=== PATIENT | female | born 1970 | race Caucasian/White ===

== ENCOUNTER 2017-01-03 13:10 | Inpatient (IN) | payer MEDICAID ==
--- NOTE | 2017-01-03 15:00 | C.PDOC ---
History Of Present Illness Sabrina is a 46 y/o female who was brought to the ED via EMS for evaluation of lower back and right buttock pain radiating down the right lateral thigh worstening for 10 days since picking up her daughter (2 y/o). h/o of same 4 yrs ago, and was bedridden due to bulging disk pain and hospitalized. No direct trauma. no leg weakness/parasthesias. No NSAIDS/ice/heat trialed @ home. PMD: Unknown Time Seen by Provider: 01/03/17 13:39 Chief Complaint (Nursing): Back Pain History Per: Patient History/Exam Limitations: no limitations Onset/Duration Of Symptoms: Days (x 10) Current Symptoms Are (Timing): Still Present Past Medical History Reviewed: Historical Data, Nursing Documentation, Vital Signs Vital Signs: Last Vital Signs Temp 98.3 F 01/03/17 18:33 Pulse 70 01/03/17 18:33 Resp 20 01/03/17 18:33 BP 105/71 01/03/17 18:33 Pulse Ox 99 01/03/17 18:33 - Medical History PMH: No Chronic Diseases Other Surgeries: Surgery for herniated lumbar disc Family History: States: Unknown Family Hx - Social History Hx Alcohol Use: No Hx Substance Use: No - Immunization History Hx Tetanus Toxoid Vaccination: No Hx Influenza Vaccination: No Hx Pneumococcal Vaccination: No Review Of Systems Except As Marked, All Systems Reviewed And Found Negative. Musculoskeletal: Positive for: Back Pain (right buttock pain radiating down the right lateral thigh) Physical Exam - Physical Exam Appears: Well, Non-toxic, No Acute Distress Skin: Normal Color, Warm, Dry, No Rash Head: Atraumatic, Normacephalic Eye(s): bilateral: Normal Inspection, PERRL, EOMI Oral Mucosa: Moist Neck: Normal ROM, Supple Chest: Symmetrical Cardiovascular: Rhythm Regular, No Murmur Respiratory: Normal Breath Sounds, No Accessory Muscle Use Gastrointestinal/Abdominal: Normal Exam, Soft, No Tenderness Back: Normal Inspection Extremity: Normal ROM, Capillary Refill (< 2 sec), No Deformity Neurological/Psych: Oriented x3, Normal Speech, Normal Motor Gait: Steady ED Course And Treatment - Laboratory Results Result Diagrams: 01/03/17 17:21 01/03/17 17:21 O2 Sat by Pulse Oximetry: 100 (RA) Pulse Ox Interpretation: Normal Progress Note: 14:00. Initial Plan: Patient given Toradol 60 mg IM, and Ultram 50 mg, ice pack to R buttock (supposing sciatica) PO. Pending reevaluation and disposition. 1600: percocet PO. 1700: pain not significantly improved, cannot sit up nor dangle legs @ bedside. CT results of LS spine reviewed- Agrees with Obs - Physician Consult Information Outcome Of Conversation: 1914: d/w Dr. Carvajal, Hospitalist for this Self pay pt - ok Obs. Medical Decision Making Medical Decision Making: intractable R sciatica pain from R>L L5/S1 disk bulge (similar to prior 4 yrs ago) unrelenting even after ice, toradol, tramadol, percocet. Solumdrol empirically and bedrest consider neuro/NSGY consults. Progress Notes: Patient will be admitted to the hospital. EKG: Ordered, reviewed, and independently interpreted the EKG. Rate: 71 BPM Rhythm: NSR Interpretation: No ST-segment elevations or depressions, no T-wave inversions, normal intervals. Comparison: No previous EKG for comparison. Disposition Doctor Will See Patient In The: Hospital Counseled Patient/Family Regarding: Studies Performed, Diagnosis - Disposition Disposition: HOSPITALIZED Disposition Time: 17:17 Condition: GOOD - Clinical Impression Clinical Impression: Bulging of lumbar intervertebral disc, Sciatica, Intractable low back pain - Scribe Statement The provider has reviewed the documentation as recorded by the Scribagustín Elliott All medical record entries made by the Scribe were at my direction and personally dictated by me. I have reviewed the chart and agree that the record accurately reflects my personal performance of the history, physical exam, medical decision making, and the department course for this patient. I have also personally directed, reviewed, and agree with the discharge instructions and disposition.
[2017-01-03] MEDS ORDERED: Oxycodone/Acetaminophen 5/325 mg Tab PO STA (15:06)
[2017-01-03] MEDS ORDERED: Oxycodone/Acetaminophen 5/325 mg Tab ONE (15:17)
--- NOTE | 2017-01-03 16:48 | CT ---
PROCEDURE: CT lumbar spine dated 01/03/2017 HISTORY: Right-sided sciatica. COMPARISON: No prior TECHNIQUE: Axial computed tomography images were obtained of the lumbar spine without the use of intravenous contrast. Coronal and sagittal reformatted images were created and reviewed. Radiation dose: Total exam DLP = 430.7 mGy-cm. This CT exam was performed using one or more of the following dose reduction techniques: Automated exposure control, adjustment of the mA and/or kV according to patient size, and/or use of iterative reconstruction technique. FINDINGS: VERTEBRAE: Current study reveals no evidence of acute compression fractures nor retropulsed fragments. Minor chronic appearing anterior stature loss of the T12 segment felt to be degenerative in origin. The remaining vertebral bodies otherwise exhibit normal stature. Straightening of the normal lumbar lordosis however vertebral bodies otherwise exhibit normal alignment. Facets normally aligned. DISCS/SPINAL CANAL/NEURAL FORAMINA: At the L5-S1 level, there appears to be a small central and right parasagittal disc herniation compresses the ventral surface of the thecal sac centrally and to the right more so than left. Disc space heights relatively maintained Facets is thus level slightly overgrown. Proximal exit foramina appear adequate. The remaining levels exhibit relatively adequate disc space height. Minimal broad-based bulge of the posterior annulus seen at the L4-L5 level which results in some flattening of the ventral surface of thecal sac. Facets are mildly overgrown. Central canal appears adequate. Exit foramina are also adequate. No disc herniations nor significant disc bulges seen at the remaining levels. Facets a prominent the L3-L4 level. The overall central canal and exit foramina appear adequate at the remaining levels. PARASPINAL SOFT TISSUES: Paraspinal soft tissues appear grossly unremarkable. OTHER FINDINGS: Incidental note made of in situ IUD. . Moderate amount of stool seen within the right colon suggesting fecal retention/constipation IMPRESSION: No acute fractures. Moderate-sized disc herniation L5-S1 level larger on the right than left with compressive effects on the ventral surface of the thecal sac again more so on the right side. . Minor broad-based bulge of the posterior annulus L4-L5 level with some minor flattening the ventral surface of thecal sac however no significant canal compromise. In situ IUD.
[2017-01-03 17:26] LABS: BASO % 0.7 % (0.0-2.0); EOS % 0.1 % (0.0-4.0); HEMATOCRIT 36.2 % (34.0-47.0); LYMPH # 1.1 K/uL (1.0-4.3); LYMPH % 22.8 % (20.0-40.0); MEAN CELL VOLUME 80.9 fL (81.0-99.0); MEAN CORPUSCULAR HEMOGLOBIN 26.8 pg (27.0-31.0); MEAN CORPUSCULAR HGB CONC 33.1 g/dL (33.0-37.0); MEAN PLATELET VOLUME 7.9 fL (7.2-11.7); MONO # 0.3 K/uL (0.0-0.8); MONO % 6.8 % (0.0-10.0); RED CELL DISTRIBUTION WIDTH 15.4 % (11.5-14.5)
[2017-01-03 17:35] LABS: CHLORIDE 105 mmol/L (98-107); POTASSIUM 3.9 mmol/L (3.6-5.2); SODIUM 141 mmol/L (132-148)
[2017-01-03 17:37] LABS: BILIRUBIN,TOTAL 0.7 mg/dL (0.2-1.3); CARBON DIOXIDE 22 mmol/L (22-30); GFR AFRICAN-AMERICAN > 60
[2017-01-03 17:38] LABS: ALB/GLOB RATIO 1.2 (1.0-2.1); ALKALINE PHOSPHATASE 36 U/L (38-126); ALT/SGPT 25 U/L (9-52); AST/SGOT 15 U/L (14-36); BLOOD UREA NITROGEN 19 mg/dL (7-17); CALCIUM 9.1 mg/dl (8.6-10.4); GLUCOSE,RANDOM 89 mg/dL (65-105); TOTAL PROTEIN 7.4 g/dL (6.3-8.3)
--- NOTE | 2017-01-03 18:15 | CP.PCM.HP ---
<Ochoa Raza - Last Filed: 01/03/17 18:11> History of Present Illness - History of Present Illness History of Present Illness: This is a 46 yo female with past medical hx of lumbar disc herniation presenting with back pain x 3 days. Pain is in lower back. It is a "shooting" sensation. It radiates into her legs. It is constant. Nothing makes it better or worse. She did not take any meds at home for it. It happened once before 4 years ago but then went away. No hx of surgery or other procedures in her back. No weight loss, no bowel/bladder incontinence. She does not have a PMD. Given toradol, oxycodone, tramadol in ER. PMH: Herniated discs PSH: None Allergies: NKDA FH: Denies Meds at home: none Social hx: Denies smoking, drinking, drug use. Born in [place]. Present on Admission - Present on Admission Any Indicators Present on Admission: No History of DVT/PE: No History of Uncontrolled Diabetes: No Urinary Catheter: No Decubitus Ulcer Present: No Review of Systems - Review of Systems All systems: reviewed and no additional remarkable complaints except Review of Systems: negative except as stated in HPI. Past Patient History - Infectious Disease Hx of Infectious Diseases: None - Tetanus Immunizations Tetanus Immunization: Unknown - Past Medical History & Family History Past Medical History?: Yes Past Family History: Reviewed and not pertinent - Past Social History Smoking Status: Never Smoked Chewing Tobacco Use: No Cigar Use: No Alcohol: None Drugs: Inhalants Home Situation {Lives}: Alone Domestic Violence: Negative - PSYCHIATRIC Hx Substance Use: No - SURGICAL HISTORY Hx Dilation and Curettage: Yes Meds Allergies/Adverse Reactions: Allergies Allergy/AdvReac Type Severity Reaction Status Date / Time No Known Allergies Allergy Verified 01/03/17 13:57 Physical Exam - Constitutional Appears: Non-toxic, No Acute Distress - Head Exam Head Exam: ATRAUMATIC, NORMAL INSPECTION, NORMOCEPHALIC - Eye Exam Eye Exam: EOMI - ENT Exam ENT Exam: Mucous Membranes Moist - Neck Exam Neck exam: Positive for: Full Rom, Normal Inspection - Respiratory Exam Respiratory Exam: NORMAL BREATHING PATTERN. absent: Respiratory Distress - Cardiovascular Exam Cardiovascular Exam: +S1, +S2 - GI/Abdominal Exam GI & Abdominal Exam: Normal Bowel Sounds, Soft. absent: Tenderness - Extremities Exam Extremities exam: Positive for: normal inspection. Negative for: full ROM Additional comments: positive straight leg raise - Back Exam Additional comments: pt unable to sit up in order to examine - Neurological Exam Neurological exam: Alert, CN II-XII Intact, Oriented x3 - Psychiatric Exam Psychiatric exam: Normal Affect, Normal Mood - Skin Skin Exam: Dry, Intact, Normal Color, Warm Results - Vital Signs Recent Vital Signs: Last Vital Signs Temp 98.2 F 01/03/17 13:13 Pulse 85 01/03/17 13:13 Resp 18 01/03/17 13:13 BP 122/81 01/03/17 13:13 Pulse Ox 100 01/03/17 17:19 - Labs Result Diagrams: 01/03/17 17:21 01/03/17 17:21 Labs: Laboratory Results - last 24 hr 01/03/17 01/03/17 17:21 17:21 WBC 5.0 RBC 4.47 Hgb 12.0 Hct 36.2 MCV 80.9 L MCH 26.8 L MCHC 33.1 RDW 15.4 H Plt Count 224 MPV 7.9 Neut % (Auto) 69.6 Lymph % (Auto) 22.8 Owen % (Auto) 6.8 Eos % (Auto) 0.1 Baso % (Auto) 0.7 Neut # 3.5 Lymph # 1.1 Owen # 0.3 Eos # 0.0 Baso # 0.0 Sodium 141 Potassium 3.9 Chloride 105 Carbon Dioxide 22 Anion Gap 18 BUN 19 H Creatinine 0.6 L Est GFR ( Amer) > 60 Est GFR (Non-Af Amer) > 60 Random Glucose 89 Calcium 9.1 Total Bilirubin 0.7 AST 15 ALT 25 Alkaline Phosphatase 36 L Total Protein 7.4 Albumin 4.1 Globulin 3.3 Albumin/Globulin Ratio 1.2 Assessment & Plan - Assessment and Plan (Free Text) Assessment: This is a 46 yo female with pmh back pain/disc herniation presenting with intractable back pain 1. Intractable back pain/sciatica -toradol 30 q 12 moderate pain -tramadol for severe pain -lumbar spine ct shows disc herniation with some compression on thecal sac -will consult ct -consult for neurosurgery. recs appreciated. 2. GI/DVT ppx -protonix -heparin [place] Dr. Ball <Peewee Ball M - Last Filed: 01/04/17 13:24> Results - Vital Signs Recent Vital Signs: Last Vital Signs Temp 98.3 F 01/04/17 08:36 Pulse 84 01/04/17 08:36 Resp 20 01/04/17 08:36 BP 105/73 01/04/17 08:36 Pulse Ox 97 01/04/17 08:36 - Labs Result Diagrams: 01/04/17 11:23 01/04/17 11:23 Labs: Laboratory Results - last 24 hr 01/03/17 01/03/17 01/04/17 17:21 17:21 11:23 WBC 5.0 5.3 RBC 4.47 4.42 Hgb 12.0 11.9 Hct 36.2 36.0 MCV 80.9 L 81.4 MCH 26.8 L 26.8 L MCHC 33.1 33.0 RDW 15.4 H 15.1 H Plt Count 224 236 MPV 7.9 8.2 Neut % (Auto) 69.6 70.3 Lymph % (Auto) 22.8 19.0 L Owen % (Auto) 6.8 10.4 H Eos % (Auto) 0.1 0.0 Baso % (Auto) 0.7 0.3 Neut # 3.5 3.7 Lymph # 1.1 1.0 Owen # 0.3 0.6 Eos # 0.0 0.0 Baso # 0.0 0.0 Sodium 141 Potassium 3.9 Chloride 105 Carbon Dioxide 22 Anion Gap 18 BUN 19 H Creatinine 0.6 L Est GFR ( Amer) > 60 Est GFR (Non-Af Amer) > 60 Random Glucose 89 Calcium 9.1 Total Bilirubin 0.7 AST 15 ALT 25 Alkaline Phosphatase 36 L Total Protein 7.4 Albumin 4.1 Globulin 3.3 Albumin/Globulin Ratio 1.2 01/04/17 11:23 WBC RBC Hgb Hct MCV MCH MCHC RDW Plt Count MPV Neut % (Auto) Lymph % (Auto) Owen % (Auto) Eos % (Auto) Baso % (Auto) Neut # Lymph # Owen # Eos # Baso # Sodium 144 Potassium 4.4 Chloride 106 Carbon Dioxide 24 Anion Gap 18 BUN 26 H Creatinine 0.7 Est GFR ( Amer) > 60 Est GFR (Non-Af Amer) > 60 Random Glucose 94 Calcium 9.5 Total Bilirubin 0.6 AST 16 ALT 19 Alkaline Phosphatase 39 Total Protein 7.4 Albumin 4.0 Globulin 3.4 Albumin/Globulin Ratio 1.2 Attending/Attestation - Attestation I have personally seen and examined this patient.: Yes I have fully participated in the care of the patient.: Yes I have reviewed all pertinent clinical information: Yes Notes (Text): 01/04/17 13:24 Patient was seen and examined at bedside. Patient admitted for intractable back pain Neurosurgery consultation has been requested We will obtain an MRI of lumbar spine Discussed the plan of care with the medical billing and coding specialist activity history and physical and assessment/plan documented.
--- NOTE | 2017-01-04 09:32 | CP.PCM.PN ---
<Kassandra Gudino - Last Filed: 01/04/17 21:55> Subjective - Date & Time of Evaluation Date of Evaluation: 01/04/17 Time of Evaluation: 09:32 - Subjective Subjective: Pt seen and examined at bedside with [place] community dietitian. Pt resting comfortably in bed but complaining of low back pain radiating to legs. Patient denies bowel or bladder incontinence, F/C/CP/SOB/N/V/D. Objective - Vital Signs/Intake and Output Vital Signs (last 24 hours): Temp Pulse Resp BP Pulse Ox 98.3 F 84 20 105/73 97 01/04/17 08:36 01/04/17 08:36 01/04/17 08:36 01/04/17 08:36 01/04/17 08:36 Intake and Output: 01/04/17 01/04/17 06:59 18:59 Intake Total 215 Balance 215 - Medications Medications: Current Medications Heparin Sodium (Porcine) (Heparin) 5,000 units SC Q8 [facility] Last Admin: 01/04/17 05:35 Dose: 5,000 units Ketorolac Tromethamine (Toradol) 30 mg IVP Q6H PRN PRN Reason: Pain, moderate (4-7) Pantoprazole Sodium (Protonix Inj) 40 mg IVP DAILY [facility] Tramadol HCl (Ultram) 50 mg PO Q6 PRN PRN Reason: Pain, severe (8-10) - Labs Labs: 01/03/17 17:21 01/03/17 17:21 - Constitutional Appears: Non-toxic, No Acute Distress - Head Exam Head Exam: NORMAL INSPECTION - Eye Exam Eye Exam: EOMI - ENT Exam ENT Exam: Mucous Membranes Moist - Respiratory Exam Respiratory Exam: NORMAL BREATHING PATTERN. absent: Accessory Muscle Use, Respiratory Distress - Cardiovascular Exam Cardiovascular Exam: REGULAR RHYTHM, +S1, +S2. absent: Bradycardia, Tachycardia - GI/Abdominal Exam GI & Abdominal Exam: Soft. absent: Distended, Tenderness - Back Exam Back Exam: tenderness (lumbar spine ) - Neurological Exam Neurological Exam: Alert, Awake, Oriented x3 - Psychiatric Exam Psychiatric exam: Normal Affect, Normal Mood - Skin Skin Exam: Dry, Intact, Warm Assessment and Plan - Assessment and Plan (Free Text) Assessment: Intractable back pain/sciatica * Toradol 30 q 12 for moderate pain (d/c on 01/04 for pre op) * Tramadol for severe pain * Lumbar spine CT: L5-S1 herniation with compression of ventral thecal sac moreso on the right than left; L4-L5 bulging disc with flattening of ventral thecal sac but no canal compression * Neurosurgery consulted (Dr. Solorzano) * MRI Lumbar spine: large size central and right paracentral disc herniation at L5-S1 associated with moderate to severe narrowing of the right lateral recess, moderate narrowing of the right side thecal sac and [id number] right neural foraminal stenosis. Also noted [id number] degenerative disc changes at L4-L5 and L5-S1. * Surgery planned for 01/[address] Solorzano * NPO past midnight * Pt should be able to go home for same day surgery per Dr. Solorzano but may need to stay one night if severe post op pain * F/U CXR and ECG GI/DVT PPX * pepcid 20 mg IVP BID * Heparin 5000 U SQ Q8H (D/C on 01/04 for pre op) <Peewee Ball - Last Filed: 01/05/17 13:18> Objective - Vital Signs/Intake and Output Vital Signs (last 24 hours): Temp Pulse Resp BP Pulse Ox 98 F 67 20 108/69 99 01/05/17 07:42 01/05/17 07:42 01/05/17 07:42 01/05/17 07:42 01/05/17 07:42 Intake and Output: 01/05/17 01/05/17 06:59 18:59 Intake Total 350 1050 Output Total 1 Balance 349 1050 - Medications Medications: Current Medications Famotidine (Pepcid) 20 mg IVP BID [facility] Last Admin: 01/05/17 10:06 Dose: Not Given Pneumococcal Polyvalent Vaccine (Pneumovax 23 Vaccine) 0.5 ml IM .ONCE ONE Stop: 01/06/17 10:01 Tramadol HCl (Ultram) 50 mg PO Q6 PRN PRN Reason: Pain, severe (8-10) Last Admin: 01/05/17 03:00 Dose: 50 mg - Labs Labs: 01/05/17 06:30 01/05/17 06:30 PT 11.4 SECONDS (9.7-12.2) 01/05/17 06:30 INR 1.0 01/05/17 06:30 APTT 28 SECONDS (21-34) 01/05/17 06:30 Attending/Attestation - Attestation I have personally seen and examined this patient.: Yes I have fully participated in the care of the patient.: Yes I have reviewed all pertinent clinical information, including history, physical exam and plan: Yes Notes (Text): 01/05/17 13:17 Patient was seen and examined at bedside with the resident Follow-up MRI of the lumbar spine report and follow up neurosurgery recommendation I discussed the plan of care with the resident and agree with the assessment and plan documented.
[2017-01-04 11:36] LABS: BASO % 0.3 % (0.0-2.0); MEAN CELL VOLUME 81.4 fL (81.0-99.0); MEAN CORPUSCULAR HEMOGLOBIN 26.8 pg (27.0-31.0); MEAN PLATELET VOLUME 8.2 fL (7.2-11.7); MONO # 0.6 K/uL (0.0-0.8); MONO % 10.4 % (0.0-10.0); RED CELL DISTRIBUTION WIDTH 15.1 % (11.5-14.5); WHITE BLOOD COUNT 5.3 K/uL (4.8-10.8)
[2017-01-04 11:45] LABS: CHLORIDE 106 mmol/L (98-107); SODIUM 144 mmol/L (132-148)
[2017-01-04 11:46] LABS: POTASSIUM 4.4 mmol/L (3.6-5.2)
[2017-01-04 11:48] LABS: ALB/GLOB RATIO 1.2 (1.0-2.1); ALKALINE PHOSPHATASE 39 U/L (38-126); ALT/SGPT 19 U/L (9-52); AST/SGOT 16 U/L (14-36); BILIRUBIN,TOTAL 0.6 mg/dL (0.2-1.3); BLOOD UREA NITROGEN 26 mg/dL (7-17); CALCIUM 9.5 mg/dl (8.6-10.4); CARBON DIOXIDE 24 mmol/L (22-30); GFR AFRICAN-AMERICAN > 60; GLUCOSE,RANDOM 94 mg/dL (65-105); TOTAL PROTEIN 7.4 g/dL (6.3-8.3)
--- NOTE | 2017-01-04 13:43 | MRI ---
PROCEDURE: MR LUMBAR SPINE WITHOUT CONTRAST HISTORY: Disc herniation lumbar spine . COMPARISON: None available. TECHNIQUE: Multiecho multiplanar sequences were performed through the lumbar spine without the use of intravenous contrast. FINDINGS: Normal lumbar lordosis. Vertebral body heights are preserved. Marrow signal unremarkable. Conus medullaris unremarkable at the level of T12 Paraspinal soft tissues are unremarkable. T12-L1: No disc herniation, spinal canal stenosis or neural foraminal narrowing. L1-2: No disc herniation, spinal canal stenosis or neural foraminal narrowing. L2-3: No disc herniation, spinal canal stenosis or neural foraminal narrowing. L3-4: No disc herniation, spinal canal stenosis or neural foraminal narrowing. L4-5: Tnbn-uq-rdvywlxk disc degenerative changes noted. No disc herniation, spinal canal stenosis or neural foraminal narrowing. L5-S1: There is a moderate to large size central and right paracentral disc herniation which resulting in moderate right sided thecal sac narrowing and moderate to severe right lateral recess stenosis with compression on the right S1 nerve. There is mild facet joint and posterior ligament hypertrophy seen also at L5-S1. OTHER FINDINGS: None. IMPRESSION: Large size central and right paracentral disc herniation at L5-S1 associated with moderate to severe narrowing of the right lateral recess, moderate narrowing of the right side thecal sac and aycz-ew-sluyspca right neural foraminal stenosis. Hcoo-hc-ornwobfj degenerative disc changes at L4-L5 and L5-S1.
--- NOTE | 2017-01-04 15:13 | CP.PCM.CON ---
History of Present Illness - History of Present Illness History of Present Illness: SPINE CONSULT Pt seen and examined. Full consult dictated. Pt for surgery tomorrow morning for exc HNP. Past Patient History - Infectious Disease Hx of Infectious Diseases: None - Tetanus Immunizations Tetanus Immunization: Unknown - Past Medical History & Family History Past Medical History?: Yes - Past Social History Smoking Status: Never Smoked - MUSCULOSKELETAL/RHEUMATOLOGICAL Hx Falls: No - PSYCHIATRIC Hx Substance Use: No - SURGICAL HISTORY Hx Dilation and Curettage: Yes Other/Comment: left breast lump removed 10 yrs ago - ANESTHESIA Hx Anesthesia: Yes Hx Anesthesia Reactions: No Hx Malignant Hyperthermia: No Has any member of the family had a problem w/ anesthesia?: No Meds Allergies/Adverse Reactions: Allergies Allergy/AdvReac Type Severity Reaction Status Date / Time No Known Allergies Allergy Verified 01/03/17 13:57 - Medications Medications: Current Medications Heparin Sodium (Porcine) (Heparin) 5,000 units SC Q8 [facility] Last Admin: 01/04/17 15:08 Dose: 5,000 units Ketorolac Tromethamine (Toradol) 30 mg IVP Q6H PRN PRN Reason: Pain, moderate (4-7) Last Admin: 01/04/17 12:09 Dose: 30 mg Pantoprazole Sodium (Protonix Inj) 40 mg IVP DAILY [facility] Last Admin: 01/04/17 09:36 Dose: 40 mg Pneumococcal Polyvalent Vaccine (Pneumovax 23 Vaccine) 0.5 ml IM .ONCE ONE Stop: 01/06/17 10:01 Tramadol HCl (Ultram) 50 mg PO Q6 PRN PRN Reason: Pain, severe (8-10) Last Admin: 01/04/17 15:08 Dose: 50 mg Results - Vital Signs Recent Vital Signs: Last Vital Signs Temp 98.3 F 01/04/17 08:36 Pulse 84 01/04/17 08:36 Resp 20 01/04/17 08:36 BP 105/73 01/04/17 08:36 Pulse Ox 97 01/04/17 08:36 - Labs Result Diagrams: 01/04/17 11:23 01/04/17 11:23 Labs: Laboratory Results - last 24 hr 01/03/17 01/03/17 01/04/17 17:21 17:21 11:23 WBC 5.0 5.3 RBC 4.47 4.42 Hgb 12.0 11.9 Hct 36.2 36.0 MCV 80.9 L 81.4 MCH 26.8 L 26.8 L MCHC 33.1 33.0 RDW 15.4 H 15.1 H Plt Count 224 236 MPV 7.9 8.2 Neut % (Auto) 69.6 70.3 Lymph % (Auto) 22.8 19.0 L [place] % (Auto) 6.8 10.4 H Eos % (Auto) 0.1 0.0 Baso % (Auto) 0.7 0.3 Neut # 3.5 3.7 Lymph # 1.1 1.0 Meade # 0.3 0.6 Eos # 0.0 0.0 Baso # 0.0 0.0 Sodium 141 Potassium 3.9 Chloride 105 Carbon Dioxide 22 Anion Gap 18 BUN 19 H Creatinine 0.6 L Est GFR ( Amer) > 60 Est GFR (Non-Af Amer) > 60 Random Glucose 89 Calcium 9.1 Total Bilirubin 0.7 AST 15 ALT 25 Alkaline Phosphatase 36 L Total Protein 7.4 Albumin 4.1 Globulin 3.3 Albumin/Globulin Ratio 1.2 01/04/17 11:23 WBC RBC Hgb Hct MCV MCH MCHC RDW Plt Count MPV Neut % (Auto) Lymph % (Auto) [place] % (Auto) Eos % (Auto) Baso % (Auto) Neut # Lymph # [place] # Eos # Baso # Sodium 144 Potassium 4.4 Chloride 106 Carbon Dioxide 24 Anion Gap 18 BUN 26 H Creatinine 0.7 Est GFR ( Amer) > 60 Est GFR (Non-Af Amer) > 60 Random Glucose 94 Calcium 9.5 Total Bilirubin 0.6 AST 16 ALT 19 Alkaline Phosphatase 39 Total Protein 7.4 Albumin 4.0 Globulin 3.4 Albumin/Globulin Ratio 1.2
--- NOTE | 2017-01-05 01:01 | CON ---
DATE: 01/04/2017 REASON FOR CONSULTATION: Intractable back pain. HISTORY OF PRESENT ILLNESS: The patient is a pleasant 46-year-old young woman who states she had a history of a herniated disc 4 years ago. At that time, she received injections, physical therapy and the pain resolved. However, she states this weekend out of the blue, she began to get excruciating pain in her back radiating down her right leg. No antecedent trauma or lifting episode she could think of leading to it. She states she cannot really move and is basically bedridden for the last several days. It does not bother her left leg. She is afraid to cough or speak to us, it aggravates the pain. If she is just lying in one spot with her knees bend, it is not too bad. PAST MEDICAL HISTORY: No significant past medical history. MEDICATIONS: She does not take any prescription medications. ALLERGIES: NO KNOWN ALLERGIES. PAST SURGICAL HISTORY: Significant for D and C. SOCIAL HISTORY: She has never smoked. Does not take any alcohol. PHYSICAL EXAMINATION: GENERAL: She is in some distress and that she is just lying flat in the bed. NEUROLOGIC: She states her sensory exam is intact to light touch throughout. EXTREMITIES: Motor is tested down by her ankles and L4 and L5 roots grossly intact. Babinski's toes downgoing. No clonus. Distal pulses are good. Straight leg raising is read on the left thigh to about 30 degrees at which time she complains of right-sided back pian; however, on the right side at about 10 to 15 degrees, she will begin to get pain shooting up the back of her leg into her lower back. MRI was done which reviewed that showed an extremely large herniated disc to the center of the right side at L5-S1 causing severe pressure on the right S1 root. Left side appears to be good. There is some desiccation at L5-S1 disc into a lesser extent to L4-L5 disc, but the discs above that looks fine. IMPRESSION: Acute S1 radiculopathy from a extremely large herniated disc. The patient notes herself that this pain is at least twice as bad as the pain she has 4 years ago. Certainly given the extent of the herniated disc, I do not think she would be a candidate for any kind of injection therapy. I really think the only way of probably treating this given the extent of the herniation is to do a microdiscectomy to try and get the pressure off her nerve root and try and get her mobilized as soon as possible. The history and physical and exam and discussion along with reviewing the MRI with her were all done using the online meat carver to speak Mauritanian to her. I feel all her questions were answered. Obviously, nothing is guaranteed 100%, but there should be a 90% chances so that she gets significant relief of her right leg pain. We may be able to discharge her tomorrow later in the day of surgery or she may need to stay overnight depending on how she would cooperate. It is explained that if she has already had the problem with the disc twice, she may need something else done down the line, but the returns rate seems to be a little less for L5-S1 disc than for L4-L5 disc, so hopefully she would be okay. She states she certainly cannot go on living the way she feels at this point and wants to get something done, so we will make tentative plans to perform the microdiscectomy tomorrow morning. Thank you for allowing me to participate in the care of your patient. Michael Solorzano MD
[2017-01-05 06:42] LABS: EOS % 0.4 % (0.0-4.0); HEMATOCRIT 34.7 % (34.0-47.0); LYMPH # 1.3 K/uL (1.0-4.3); LYMPH % 36.2 % (20.0-40.0); MEAN CELL VOLUME 80.3 fL (81.0-99.0); MEAN CORPUSCULAR HEMOGLOBIN 26.7 pg (27.0-31.0); MEAN CORPUSCULAR HGB CONC 33.2 g/dL (33.0-37.0); MONO # 0.3 K/uL (0.0-0.8); MONO % 9.6 % (0.0-10.0); NRBC % 0.1 % (0.0-2.0); RED CELL DISTRIBUTION WIDTH 15.2 % (11.5-14.5); WHITE BLOOD COUNT 3.5 K/uL (4.8-10.8)
[2017-01-05 07:03] LABS: ALB/GLOB RATIO 1.3 (1.0-2.1); ALKALINE PHOSPHATASE 34 U/L (38-126); ALT/SGPT 20 U/L (9-52); AST/SGOT 16 U/L (14-36); BILIRUBIN,TOTAL 0.5 mg/dL (0.2-1.3); BLOOD UREA NITROGEN 28 mg/dL (7-17); CALCIUM 9.1 mg/dl (8.6-10.4); CARBON DIOXIDE 27 mmol/L (22-30); CHLORIDE 102 mmol/L (98-107); GFR AFRICAN-AMERICAN > 60; GLUCOSE,RANDOM 83 mg/dL (65-105); MAGNESIUM 2.4 mg/dL (1.6-2.3); PHOSPHOROUS 3.9 mg/dL (2.5-4.5); SODIUM 139 mmol/L (132-148); TOTAL PROTEIN 6.7 g/dL (6.3-8.3)
--- NOTE | 2017-01-05 09:44 | RAD ---
PROCEDURE: CHEST RADIOGRAPH, 1 VIEW HISTORY: Pre op assessment COMPARISON: None available. FINDINGS: LUNGS: Clear. PLEURA: No pneumothorax or pleural fluid seen. CARDIOVASCULAR: Normal. OSSEOUS STRUCTURES: No significant abnormalities. VISUALIZED UPPER ABDOMEN: Normal. OTHER FINDINGS: None. IMPRESSION: No active disease.
[2017-01-05] MEDS ORDERED: Lidocaine 2% w Epi 1:100,000 Inj IJ ONE (09:57)
[2017-01-05] MEDS ORDERED: Thrombin Topical 5,000 IU Spray Kit ONE (09:58)
[2017-01-05] MEDS ORDERED: Sodium Chloride 0.9% 20 ML IV ONE (09:58)
[2017-01-05] MEDS ORDERED: Bupivacaine HCl 0.5% PF (10 ml) Inj ONE ×2 (09:59→10:00)
[2017-01-05] MEDS ORDERED: Absorbable Gelatin Sponge Size 100 ONE (09:59)
[2017-01-05] MEDS ORDERED: Bacitracin Ointment 30 GM TUBE ONE (10:00)
--- NOTE | 2017-01-05 11:20 | CP.PCM.PN ---
<Ganga Martinezssyca DylonMickie - Last Filed: 01/05/17 15:56> Subjective - Date & Time of Evaluation Date of Evaluation: 01/05/17 Time of Evaluation: 07:00 - Subjective Subjective: Medical Progress Note: Patient was seen and examined in the AM at bedside. Per nurse there were not acute events overnight. Patient states she is aware that she is going to the operating room today. Patient states she is feeling a bit anxious before the procedure and is feeling slight chest pressure located in the sub-sternal area. Patient denies palpitations, shortness of breath, nausea or vomiting. Objective - Vital Signs/Intake and Output Vital Signs (last 24 hours): Temp Pulse Resp BP Pulse Ox 98 F 67 20 108/69 99 01/05/17 07:42 01/05/17 07:42 01/05/17 07:42 01/05/17 07:42 01/05/17 07:42 Intake and Output: 01/05/17 01/05/17 06:59 18:59 Intake Total 350 Output Total 1 Balance 349 - Medications Medications: Current Medications Famotidine (Pepcid) 20 mg IVP BID [facility] Last Admin: 01/05/17 10:06 Dose: Not Given Pneumococcal Polyvalent Vaccine (Pneumovax 23 Vaccine) 0.5 ml IM .ONCE ONE Stop: 01/06/17 10:01 Tramadol HCl (Ultram) 50 mg PO Q6 PRN PRN Reason: Pain, severe (8-10) Last Admin: 01/05/17 03:00 Dose: 50 mg - Labs Labs: 01/05/17 06:30 01/05/17 06:30 PT 11.4 SECONDS (9.7-12.2) 01/05/17 06:30 INR 1.0 01/05/17 06:30 APTT 28 SECONDS (21-34) 01/05/17 06:30 - Constitutional Appears: Well, No Acute Distress - Head Exam Head Exam: ATRAUMATIC, NORMAL INSPECTION, NORMOCEPHALIC - Eye Exam Eye Exam: EOMI, Normal appearance, PERRL Pupil Exam: NORMAL ACCOMODATION - ENT Exam ENT Exam: Mucous Membranes Moist - Respiratory Exam Respiratory Exam: Clear to Ausculation Bilateral, NORMAL BREATHING PATTERN. absent: Decreased Breath Sounds, Rales, Rhonchi, Wheezes, Respiratory Distress, Stridor - Cardiovascular Exam Cardiovascular Exam: REGULAR RHYTHM, RRR, +S1, +S2 - GI/Abdominal Exam GI & Abdominal Exam: Soft, Normal Bowel Sounds. absent: Tenderness - Extremities Exam Extremities Exam: Normal Inspection. absent: Pedal Edema, Tenderness - Back Exam Additional comments: + right straight leg test Normal left straight leg test - Neurological Exam Neurological Exam: Alert, Awake, Oriented x3 - Psychiatric Exam Psychiatric exam: Anxious - Skin Skin Exam: Normal Color, Warm Assessment and Plan - Assessment and Plan (Free Text) Plan: 1.) Intractable back pain/sciatica * Toradol 30 q 12 for moderate pain (d/c on 01/04 for pre op) * Tramadol for severe pain * Lumbar spine CT: L5-S1 herniation with compression of ventral thecal sac moreso on the right than left; L4-L5 bulging disc with flattening of ventral thecal sac but no canal compression * Neurosurgery consulted (Dr. Solorzano) --> help appreciated * MRI Lumbar spine: large size central and right paracentral disc herniation at L5-S1 associated with moderate to severe narrowing of the right lateral recess, moderate narrowing of the right side thecal sac and [id number] right neural foraminal stenosis. Also noted [id number] degenerative disc changes at L4-L5 and L5-S1. * Surgery planned for 01/[address] Solorzano * EKG - normal * Chest x-ray: No pneumothorax or pleural fluid seen -Patient cleared for surgery per Dr. Ball 2.) Prophylaxis * pepcid 20 mg IVP BID * Heparin 5000 U SQ Q8H (D/C on 01/04 for pre op) Case discussed with Dr. Lizzy Martinez PGY-1 <Peewee Ball M - Last Filed: 01/06/17 15:09> Objective - Vital Signs/Intake and Output Vital Signs (last 24 hours): Temp Pulse Resp BP Pulse Ox 98.3 F 103 H 20 98/68 L 97 01/06/17 08:00 01/06/17 08:00 01/06/17 08:00 01/06/17 08:00 01/06/17 08:00 Intake and Output: 01/06/17 01/06/17 06:59 18:59 Intake Total 550 Balance 550 - Medications Medications: Current Medications Famotidine (Pepcid) 20 mg PO DAILY [facility] Lactated Ringer's (Lactated Ringer's) 1,000 mls @ 100 mls/hr IV .Q10H [facility] Ketorolac Tromethamine (Toradol) 30 mg IVP Q6 [facility] Last Admin: 01/05/17 17:59 Dose: 30 mg Tramadol HCl (Ultram) 50 mg PO Q6 PRN PRN Reason: Pain, severe (8-10) Last Admin: 01/05/17 03:00 Dose: 50 mg - Labs Labs: 01/06/17 07:36 01/06/17 07:36 PT 11.4 SECONDS (9.7-12.2) 01/05/17 06:30 INR 1.0 01/05/17 06:30 APTT 28 SECONDS (21-34) 01/05/17 06:30 Attending/Attestation - Attestation I have personally seen and examined this patient.: Yes I have fully participated in the care of the patient.: Yes I have reviewed all pertinent clinical information, including history, physical exam and plan: Yes Notes (Text): 01/06/17 15:08 Patient was seen and examined at bedside with the resident. Plan for surgery today and sent patient is medically cleared for the surgical procedure Discussed the plan of care with the resident and agree with the assessment and plan documented.
[2017-01-05] MEDS ORDERED: Propofol 10 mg/ml 1,000 MG/100 ML VIAL ONE (11:30)
[2017-01-05] MEDS ORDERED: Midazolam 2 MG/2 ML VIAL ONE (11:31)
[2017-01-05] MEDS ORDERED: Propofol 10 mg/ml Inj (20 ML) ONE (11:32)
[2017-01-05] MEDS ORDERED: ceFAZolin IV 2 gm in Dextrose 1 GM/50 ML BAG IVPB ONE (11:38)
[2017-01-05] MEDS ORDERED: Rocuronium 10 mg/ml (5 ml) ONE (12:52)
[2017-01-05] MEDS ORDERED: Succinylcholine Chloride 20 mg/ml Syr (5 ml) IV ONE (12:52)
[2017-01-05] MEDS ORDERED: Lactated Ringer's 1,000 ML IV ONE (13:20)
--- NOTE | 2017-01-05 13:29 | PCM.OP ---
Operative Report - Operative Report Date of Surgery/Procedure: 01/05/17 Time of Surgery/Procedure: 12:00 Surgeon: alice Bee Raiser: lory Anesthesia/Sedation: gen Pre-Operative Diagnosis: HNP L5-S1 Post-Operative Diagnosis: Same Indication for Surgery: Pain Operative Findings: Extruded fragments Procedure/Operation Description: Exc HNP Estimated Blood Loss: 50 Complications: None Discharge & Condition: Stable
[2017-01-05] MEDS ORDERED: Lactated Ringer's 1,000 ML IV SCH (13:30)
[2017-01-05] MEDS: HYDROmorphone 0.5 mg/0.5 ml ISec IVP PRN ×2 (13:52→14:20)
--- NOTE | 2017-01-05 14:55 | RAD ---
PROCEDURE: Intraoperative fluoroscopy HISTORY: HERNIATED LUMBAR DISC L-5,S-1 COMPARISON: Not available TECHNIQUE: Intraoperative fluoroscopy was provided for lumbar spine injection. Total time of fluoroscopy was 8.2 seconds. FINDINGS: Three fluoroscopic spot films are submitted. Films are on file for review. IMPRESSION: Fluoroscopy provided.
[2017-01-05 17:20] VITALS: RESP 20
--- NOTE | 2017-01-05 23:33 | OP ---
PROCEDURE DATE: 01/05/2017 PREOPERATIVE DIAGNOSES: Herniated disk, right L5-S1, arthritis and radiculopathy. POSTOPERATIVE DIAGNOSES: Extruded herniated disc. OPERATION: Hemilaminotomy with excision of extruded herniated disc, right L5-S1. SURGEON: Dr. Solorzano. LOBBY PORTER: Amilcar. ANESTHESIA: General endotracheal intubation. PROCEDURE: The patient was brought to the operating room and general anesthesia was achieved. Intravenous antibiotics were administered. Spinal cord monitoring leads were placed throughout the patient's body. Real time monitoring was done by dialysis biomed technician in the room, remote monitoring done by physician as well. Sequential compression boots were placed each of the patient's legs. The patient was then gently turned onto the operating table and placed prone on Hemal frame, keeping her abdomen and breast free from pressure anteriorly. Care was taken to protect the elbows and knees from pressure points. A Steri drape was used to seal of the patient's perineal region in the operative field, and her back was sterilely prepped and draped. The level of incision was noted under fluoroscopy and infiltrated lidocaine with epinephrine. Incision was made sharply in midline, taken down to the subcutaneous tissue using sharp and blunt dissection. Hemostasis achieved using electrocautery. The fascia was divided and stripped laterally off the right side spinous processes and laminae with a Castillo elevator and electrocautery. Brittney retractor was placed around the 5-1 facet joint to obtain exposure. Soft tissue attachments were cleared using electrocautery. Hemilaminotomy was then carried out using Kerrison rongeurs. Once that was done, the operating microscope was brought into the field and the rest of decompression done under microscopic visualization. A hemilaminotomy was then widened laterally. We could see the S1 root clearly. There was a lot of pressure from the ventral surface of the thecal sac and it was difficult retract. Just as some pressure was applied, a large piece of extruded disc presented itself and this was removed using a pituitary rongeur. Several other large extruded pieces were found and removed. A large annular defect was noted. The disc space was copiously irrigated with antibiotic solution. It was further inspected in the midline, above and below, no further loose fragments were noted either within the disc nor outside. Hemostasis was achieved with bipolar cautery as well as thrombinated Gelfoam powder. Just gentle probing of the macias revealed no residual pressure along the ventral surface, thecal sac nor at the L5 foramina or the S1 foramina on the right side. Hemostasis was achieved as mentioned and the wound then closed in layers with interrupted sutures of 0 Vicryl for the fascia, 2-0 Vicryl for the subcutaneous tissue after further antibiotic irrigation, and a running subcuticular suture of 3-0 Monocryl for the skin. Dermabond was applied. Once that was dry, the patient was transferred on to a stretcher in a supine position. She was awake and then extubated. She was taken to recovery room in stable condition having tolerated the procedure well. Estimated blood loss was 50 mL. She received a liter of crystalloid during the operation. No permanent electrophysiologic abnormalities were noted at the completion of the case. Michael Solorzano MD [facility]DL[facility]
[2017-01-06 07:55] LABS: BASO % 0.6 % (0.0-2.0); EOS % 0.2 % (0.0-4.0); LYMPH # 1.3 K/uL (1.0-4.3); LYMPH % 29.9 % (20.0-40.0); MEAN CELL VOLUME 80.6 fL (81.0-99.0); MEAN CORPUSCULAR HEMOGLOBIN 26.9 pg (27.0-31.0); MEAN CORPUSCULAR HGB CONC 33.4 g/dL (33.0-37.0); MONO # 0.4 K/uL (0.0-0.8); MONO % 9.5 % (0.0-10.0); NRBC % 0.1 % (0.0-2.0); RED CELL DISTRIBUTION WIDTH 15.3 % (11.5-14.5); WHITE BLOOD COUNT 4.4 K/uL (4.8-10.8)
[2017-01-06 08:09] LABS: CHLORIDE 103 mmol/L (98-107); SODIUM 139 mmol/L (132-148)
[2017-01-06 08:10] LABS: POTASSIUM 3.7 mmol/L (3.6-5.2)
[2017-01-06 08:11] LABS: GFR AFRICAN-AMERICAN > 60
[2017-01-06 08:12] LABS: ALB/GLOB RATIO 1.2 (1.0-2.1); ALKALINE PHOSPHATASE 36 U/L (38-126); ALT/SGPT 23 U/L (9-52); AST/SGOT 17 U/L (14-36); BILIRUBIN,TOTAL 0.6 mg/dL (0.2-1.3); BLOOD UREA NITROGEN 20 mg/dL (7-17); CALCIUM 8.6 mg/dl (8.6-10.4); CARBON DIOXIDE 26 mmol/L (22-30); GLUCOSE,RANDOM 88 mg/dL (65-105); PHOSPHOROUS 3.3 mg/dL (2.5-4.5); TOTAL PROTEIN 6.4 g/dL (6.3-8.3)
[2017-01-06 08:13] LABS: MAGNESIUM 2.3 mg/dL (1.6-2.3)
[2017-01-06] MEDS ORDERED: Pneumococcal 23-Valent Vaccine IM ONE (10:00)
--- NOTE | 2017-01-06 11:45 | CP.PCM.DIS ---
Provider - Provider Date of Admission: 01/04/17 15:05 Attending physician: Peewee Ball MD Hospital Course - Lab Results Lab Results: Most Recent Lab Values WBC 4.4 K/uL (4.8-10.8) L 01/06/17 07:36 RBC 3.98 Mil/uL (3.80-5.20) 01/06/17 07:36 Hgb 10.7 g/dL (11.0-16.0) L 01/06/17 07:36 Hct 32.0 % (34.0-47.0) L 01/06/17 07:36 MCV 80.6 fL (81.0-99.0) L 01/06/17 07:36 MCH 26.9 pg (27.0-31.0) L 01/06/17 07:36 MCHC 33.4 g/dL (33.0-37.0) 01/06/17 07:36 RDW 15.3 % (11.5-14.5) H 01/06/17 07:36 Plt Count 194 K/uL (130-400) 01/06/17 07:36 MPV 8.0 fL (7.2-11.7) 01/06/17 07:36 Neut % (Auto) 59.8 % (50.0-75.0) 01/06/17 07:36 Lymph % (Auto) 29.9 % (20.0-40.0) 01/06/17 07:36 [place] % (Auto) 9.5 % (0.0-10.0) 01/06/17 07:36 Eos % (Auto) 0.2 % (0.0-4.0) 01/06/17 07:36 Baso % (Auto) 0.6 % (0.0-2.0) 01/06/17 07:36 Neut # 2.7 K/uL (1.8-7.0) 01/06/17 07:36 Lymph # 1.3 K/uL (1.0-4.3) 01/06/17 07:36 [place] # 0.4 K/uL (0.0-0.8) 01/06/17 07:36 Eos # 0.0 K/uL (0.0-0.7) 01/06/17 07:36 Baso # 0.0 K/uL (0.0-0.2) 01/06/17 07:36 PT 11.4 SECONDS (9.7-12.2) 01/05/17 06:30 INR 1.0 01/05/17 06:30 APTT 28 SECONDS (21-34) 01/05/17 06:30 Sodium 139 mmol/L (132-148) 01/06/17 07:36 Potassium 3.7 mmol/L (3.6-5.2) 01/06/17 07:36 Chloride 103 mmol/L (98-107) 01/06/17 07:36 Carbon Dioxide 26 mmol/L (22-30) 01/06/17 07:36 Anion Gap 14 (10-20) 01/06/17 07:36 BUN 20 mg/dL (7-17) H 01/06/17 07:36 Creatinine 0.8 MG/DL (0.7-1.2) 01/06/17 07:36 Est GFR ( Amer) > 60 01/06/17 07:36 Est GFR (Non-Af Amer) > 60 01/06/17 07:36 Random Glucose 88 mg/dL (65-105) 01/06/17 07:36 Calcium 8.6 mg/dl (8.6-10.4) 01/06/17 07:36 Phosphorus 3.3 mg/dL (2.5-4.5) 01/06/17 07:36 Magnesium 2.3 mg/dL (1.6-2.3) 01/06/17 07:36 Total Bilirubin 0.6 mg/dL (0.2-1.3) 01/06/17 07:36 AST 17 U/L (14-36) 01/06/17 07:36 ALT 23 U/L (9-52) 01/06/17 07:36 Alkaline Phosphatase 36 U/L (38-126) L 01/06/17 07:36 Total Protein 6.4 g/dL (6.3-8.3) 01/06/17 07:36 Albumin 3.5 g/dL (3.5-5.0) 01/06/17 07:36 Globulin 2.9 gm/dL (2.2-3.9) 01/06/17 07:36 Albumin/Globulin Ratio 1.2 (1.0-2.1) 01/06/17 07:36 Urine HCG, Qual Negative (NEGATIVE) 01/05/17 07:09 Discharge Exam - Head Exam Head Exam: ATRAUMATIC, NORMAL INSPECTION, NORMOCEPHALIC Discharge Plan - Follow Up Plan Condition: GOOD Disposition: HOME/ ROUTINE
--- NOTE | 2017-01-06 13:23 | CP.PCM.PN ---
<Ximena Martinez - Last Filed: 01/06/17 16:28> Subjective - Date & Time of Evaluation Date of Evaluation: 01/06/17 Time of Evaluation: 07:00 - Subjective Subjective: Medicine Progress Note: Patient was seen and examined at bedside in the AM. Patient states she feels better today. Patient states she has some soreness in her back because of the surgery but she states it is so much better than yesterday. Patient stated she walked to the bathroom yesterday after her surgery and felt well. Patient denies any numbness, tingling, chest pain or palpitations. Patient states she lives with her and children at home and they can help her at home. Per physical therapy patient stated she has 30 steps to go up in her house. Objective - Vital Signs/Intake and Output Vital Signs (last 24 hours): Temp Pulse Resp BP Pulse Ox 98.3 F 103 H 20 98/68 L 97 01/06/17 08:00 01/06/17 08:00 01/06/17 08:00 01/06/17 08:00 01/06/17 08:00 Intake and Output: 01/06/17 01/06/17 06:59 18:59 Intake Total 550 Balance 550 - Medications Medications: Current Medications Famotidine (Pepcid) 20 mg IVP BID [facility] Last Admin: 01/06/17 10:26 Dose: 20 mg Lactated Ringer's (Lactated Ringer's) 1,000 mls @ 100 mls/hr IV .Q10H [facility] Ketorolac Tromethamine (Toradol) 30 mg IVP Q6 [facility] Last Admin: 01/05/17 17:59 Dose: 30 mg Tramadol HCl (Ultram) 50 mg PO Q6 PRN PRN Reason: Pain, severe (8-10) Last Admin: 01/05/17 03:00 Dose: 50 mg - Labs Labs: 01/06/17 07:36 01/06/17 07:36 PT 11.4 SECONDS (9.7-12.2) 01/05/17 06:30 INR 1.0 01/05/17 06:30 APTT 28 SECONDS (21-34) 01/05/17 06:30 - Constitutional Appears: Well, Non-toxic, No Acute Distress - Head Exam Head Exam: ATRAUMATIC, NORMAL INSPECTION, NORMOCEPHALIC - Eye Exam Eye Exam: EOMI, Normal appearance, PERRL Pupil Exam: NORMAL ACCOMODATION - ENT Exam ENT Exam: Mucous Membranes Moist - Respiratory Exam Respiratory Exam: Clear to Ausculation Bilateral, NORMAL BREATHING PATTERN - Cardiovascular Exam Cardiovascular Exam: REGULAR RHYTHM, RRR, +S1, +S2 - GI/Abdominal Exam GI & Abdominal Exam: Soft, Normal Bowel Sounds. absent: Tenderness - Extremities Exam Extremities Exam: Normal Inspection. absent: Tenderness - Back Exam Back Exam: NORMAL INSPECTION (incision is clean and dry ) - Neurological Exam Neurological Exam: Alert, Awake, Oriented x3 - Psychiatric Exam Psychiatric exam: Normal Affect - Skin Skin Exam: Dry, Intact, Normal Color, Warm Assessment and Plan - Assessment and Plan (Free Text) Plan: 1.) Intractable back pain/sciatica * Toradol 30 q 12 for moderate pain (d/c on 01/04 for pre op) * Tramadol for severe pain * Lumbar spine CT: L5-S1 herniation with compression of ventral thecal sac moreso on the right than left; L4-L5 bulging disc with flattening of ventral thecal sac but no canal compression * Neurosurgery consulted (Dr. Solorzano) --> help appreciated * MRI Lumbar spine: large size central and right paracentral disc herniation at L5-S1 associated with moderate to severe narrowing of the right lateral recess, moderate narrowing of the right side thecal sac and [id number] right neural foraminal stenosis. Also noted [id number]-bm-[id number] degenerative disc changes at L4-L5 and L5-S1. * Surgery 01/[address] Solorzano - L5-S1 lumbar discectomy completed * EKG - normal * Chest x-ray: No pneumothorax or pleural fluid seen -Patient cleared for surgery per Dr. Ball 2.) Prophylaxis * pepcid 20 mg IVP BID * Heparin 5000 U SQ Q8H (D/C on 01/04 for pre op) Disposition: possible discharge 01/07 pending physical therapy Case discussed with Dr. Lizzy Martinez PGY-1 <Peewee Ball - Last Filed: 01/06/17 18:13> Objective - Vital Signs/Intake and Output Vital Signs (last 24 hours): Temp Pulse Resp BP Pulse Ox 98.6 F 78 20 111/70 97 01/06/17 15:00 01/06/17 15:00 01/06/17 15:00 01/06/17 15:00 01/06/17 15:00 Intake and Output: 01/06/17 01/06/17 06:59 18:59 Intake Total 550 Balance 550 - Medications Medications: Current Medications Famotidine (Pepcid) 20 mg PO DAILY [facility] Lactated Ringer's (Lactated Ringer's) 1,000 mls @ 100 mls/hr IV .Q10H [facility] Ketorolac Tromethamine (Toradol) 30 mg IVP Q6 [facility] Last Admin: 01/05/17 17:59 Dose: 30 mg Tramadol HCl (Ultram) 50 mg PO Q6 PRN PRN Reason: Pain, severe (8-10) Last Admin: 01/06/17 17:51 Dose: 50 mg - Labs Labs: 01/06/17 07:36 01/06/17 07:36 PT 11.4 SECONDS (9.7-12.2) 01/05/17 06:30 INR 1.0 01/05/17 06:30 APTT 28 SECONDS (21-34) 01/05/17 06:30 Attending/Attestation - Attestation I have personally seen and examined this patient.: Yes I have fully participated in the care of the patient.: Yes I have reviewed all pertinent clinical information, including history, physical exam and plan: Yes Notes (Text): 01/06/17 18:04 Patient was seen and examined at bedside with the resident Back pain is improved significantly Continue physical therapy daily Discharge planning in progress.
[2017-01-07 07:54] LABS: BASO % 0.4 % (0.0-2.0); EOS % 0.7 % (0.0-4.0); HEMATOCRIT 32.7 % (34.0-47.0); LYMPH # 1.2 K/uL (1.0-4.3); LYMPH % 21.2 % (20.0-40.0); MEAN CELL VOLUME 81.6 fL (81.0-99.0); MEAN CORPUSCULAR HEMOGLOBIN 26.9 pg (27.0-31.0); MEAN CORPUSCULAR HGB CONC 32.9 g/dL (33.0-37.0); MEAN PLATELET VOLUME 8.1 fL (7.2-11.7); MONO # 0.6 K/uL (0.0-0.8); MONO % 10.9 % (0.0-10.0); RED CELL DISTRIBUTION WIDTH 15.2 % (11.5-14.5); WHITE BLOOD COUNT 5.5 K/uL (4.8-10.8)
[2017-01-07 08:15] LABS: CHLORIDE 106 mmol/L (98-107)
[2017-01-07 08:16] LABS: POTASSIUM 4.3 mmol/L (3.6-5.2); SODIUM 143 mmol/L (132-148)
[2017-01-07 08:18] LABS: GFR AFRICAN-AMERICAN > 60
[2017-01-07 08:19] LABS: ALB/GLOB RATIO 1.2 (1.0-2.1); ALKALINE PHOSPHATASE 35 U/L (38-126); ALT/SGPT 21 U/L (9-52); AST/SGOT 17 U/L (14-36); BILIRUBIN,TOTAL 0.6 mg/dL (0.2-1.3); BLOOD UREA NITROGEN 20 mg/dL (7-17); CALCIUM 8.7 mg/dl (8.6-10.4); CARBON DIOXIDE 29 mmol/L (22-30); GLUCOSE,RANDOM 90 mg/dL (65-105); PHOSPHOROUS 3.7 mg/dL (2.5-4.5); TOTAL PROTEIN 6.8 g/dL (6.3-8.3)
[2017-01-07 08:20] LABS: MAGNESIUM 2.1 mg/dL (1.6-2.3)
--- NOTE | 2017-01-07 14:11 | CP.PCM.DIS ---
<Ximena Martinez - Last Filed: 01/07/17 21:01> Provider - Provider Date of Admission: 01/04/17 15:05 Attending physician: Peewee Ball MD Time Spent in preparation of Discharge (in minutes): 40 Hospital Course - Lab Results Lab Results: Most Recent Lab Values WBC 5.5 K/uL (4.8-10.8) 01/07/17 07:40 RBC 4.00 Mil/uL (3.80-5.20) 01/07/17 07:40 Hgb 10.8 g/dL (11.0-16.0) L 01/07/17 07:40 Hct 32.7 % (34.0-47.0) L 01/07/17 07:40 MCV 81.6 fL (81.0-99.0) 01/07/17 07:40 MCH 26.9 pg (27.0-31.0) L 01/07/17 07:40 MCHC 32.9 g/dL (33.0-37.0) L 01/07/17 07:40 RDW 15.2 % (11.5-14.5) H 01/07/17 07:40 Plt Count 192 K/uL (130-400) 01/07/17 07:40 MPV 8.1 fL (7.2-11.7) 01/07/17 07:40 Neut % (Auto) 66.8 % (50.0-75.0) 01/07/17 07:40 Lymph % (Auto) 21.2 % (20.0-40.0) 01/07/17 07:40 [place] % (Auto) 10.9 % (0.0-10.0) H 01/07/17 07:40 Eos % (Auto) 0.7 % (0.0-4.0) 01/07/17 07:40 Baso % (Auto) 0.4 % (0.0-2.0) 01/07/17 07:40 Neut # 3.7 K/uL (1.8-7.0) 01/07/17 07:40 Lymph # 1.2 K/uL (1.0-4.3) 01/07/17 07:40 [place] # 0.6 K/uL (0.0-0.8) 01/07/17 07:40 Eos # 0.0 K/uL (0.0-0.7) 01/07/17 07:40 Baso # 0.0 K/uL (0.0-0.2) 01/07/17 07:40 PT 11.4 SECONDS (9.7-12.2) 01/05/17 06:30 INR 1.0 01/05/17 06:30 APTT 28 SECONDS (21-34) 01/05/17 06:30 Sodium 143 mmol/L (132-148) 01/07/17 07:40 Potassium 4.3 mmol/L (3.6-5.2) 01/07/17 07:40 Chloride 106 mmol/L (98-107) 01/07/17 07:40 Carbon Dioxide 29 mmol/L (22-30) 01/07/17 07:40 Anion Gap 12 (10-20) 01/07/17 07:40 BUN 20 mg/dL (7-17) H 01/07/17 07:40 Creatinine 0.8 MG/DL (0.7-1.2) 01/07/17 07:40 Est GFR ( Amer) > 60 01/07/17 07:40 Est GFR (Non-Af Amer) > 60 01/07/17 07:40 Random Glucose 90 mg/dL (65-105) 01/07/17 07:40 Calcium 8.7 mg/dl (8.6-10.4) 01/07/17 07:40 Phosphorus 3.7 mg/dL (2.5-4.5) 01/07/17 07:40 Magnesium 2.1 mg/dL (1.6-2.3) 01/07/17 07:40 Total Bilirubin 0.6 mg/dL (0.2-1.3) 01/07/17 07:40 AST 17 U/L (14-36) 01/07/17 07:40 ALT 21 U/L (9-52) 01/07/17 07:40 Alkaline Phosphatase 35 U/L (38-126) L 01/07/17 07:40 Total Protein 6.8 g/dL (6.3-8.3) 01/07/17 07:40 Albumin 3.8 g/dL (3.5-5.0) 01/07/17 07:40 Globulin 3.1 gm/dL (2.2-3.9) 01/07/17 07:40 Albumin/Globulin Ratio 1.2 (1.0-2.1) 01/07/17 07:40 Urine HCG, Qual Negative (NEGATIVE) 01/05/17 07:09 - Hospital Course Hospital Course: This is a 46 yo female with past medical hx of lumbar disc herniation presenting with back pain x 3 days. Pain is in lower back. It is a "shooting" sensation. It radiates into her legs. It is constant. Nothing makes it better or worse. She did not take any meds at home for it. It happened once before 4 years ago but then went away. No hx of surgery or other procedures in her back. No weight loss, no bowel/bladder incontinence. She does not have a PMD. Given toradol, oxycodone, tramadol in ER. PMH: Herniated discs PSH: None Allergies: NKDA FH: Denies Meds at home: none Social hx: Denies smoking, drinking, drug use. Born in [place]. Hospital Course: 01/03/17: Patient is a 46 Cypriot speaking female with worsening low back and right buttick pain radiating to right lateral thigh with prior episode 4 years ago due to herniated disk. Lumbar spine CT performed and showed no acute fractures, moderate disc herniation at L5-S1 level greater on the right with compressive effects on the vertebral surface of thecal sac. Minor broad based bulge of posterior annulus at L4-L5 with minor flattening of ventral surface of thecal sac with no significant canal compromise. Patient admitted by Dr Ball. 01/04/17: Dr. Solorzano consulted for neurosurgery. 01/05/17: Patient underwent hemilaminotomy with excision of extruded herniated disc, right L5-S1 by Dr. Solorzano. 01/06/17: Patient evaluated by PT and recommended patient use a cane for support. Patient is stable for discharge per Dr. Ball. Patient is to follow up with Dr. Rashad Rodriguez within one week. Patient has been instructed to change the dressing once a week and keep the dressing dry. Patient has been instructed to use a cane for support when walking. Patient is to return to the Emergency Room if symptoms return or worsen. This is a brief summary of events. For a complete course, refer to the medical record. Discharge Exam - Head Exam Head Exam: ATRAUMATIC, NORMAL INSPECTION, NORMOCEPHALIC - Eye Exam Eye Exam: EOMI, Normal appearance, PERRL Pupil Exam: NORMAL ACCOMODATION - ENT Exam ENT Exam: Mucous Membranes Moist - Respiratory Exam Respiratory Exam: Clear to PA & Lateral, NORMAL BREATHING PATTERN - Cardiovascular Exam Cardiovascular Exam: REGULAR RHYTHM, RRR, +S1, +S2 - GI/Abdominal Exam GI & Abdominal Exam: Normal Bowel Sounds, Soft. absent: Tenderness - Extremities Exam Extremities exam: normal inspection - Back Exam Back exam: tenderness (minor tenderness where the incision is L5-S1) - Neurological Exam Neurological exam: Alert, Oriented x3 - Psychiatric Exam Psychiatric exam: Normal Affect, Normal Mood - Skin Skin Exam: Dry, Intact, Normal Color, Warm Discharge Plan - Follow Up Plan Condition: GOOD Disposition: HOME/ ROUTINE Instructions: Sciatica (DC), Back Pain (GEN) Referrals: Michael Solorzano MD [Staff Provider] - Jesse Farah MD [Staff Provider] - <Peewee Ball - Last Filed: 01/08/17 15:59> Provider - Provider Date of Admission: 01/04/17 15:05 Attending physician: Peewee Ball MD Hospital Course - Lab Results Lab Results: Most Recent Lab Values WBC 5.5 K/uL (4.8-10.8) 01/07/17 07:40 RBC 4.00 Mil/uL (3.80-5.20) 01/07/17 07:40 Hgb 10.8 g/dL (11.0-16.0) L 01/07/17 07:40 Hct 32.7 % (34.0-47.0) L 01/07/17 07:40 MCV 81.6 fL (81.0-99.0) 01/07/17 07:40 MCH 26.9 pg (27.0-31.0) L 01/07/17 07:40 MCHC 32.9 g/dL (33.0-37.0) L 01/07/17 07:40 RDW 15.2 % (11.5-14.5) H 01/07/17 07:40 Plt Count 192 K/uL (130-400) 01/07/17 07:40 MPV 8.1 fL (7.2-11.7) 01/07/17 07:40 Neut % (Auto) 66.8 % (50.0-75.0) 01/07/17 07:40 Lymph % (Auto) 21.2 % (20.0-40.0) 01/07/17 07:40 [place] % (Auto) 10.9 % (0.0-10.0) H 01/07/17 07:40 Eos % (Auto) 0.7 % (0.0-4.0) 01/07/17 07:40 Baso % (Auto) 0.4 % (0.0-2.0) 01/07/17 07:40 Neut # 3.7 K/uL (1.8-7.0) 01/07/17 07:40 Lymph # 1.2 K/uL (1.0-4.3) 01/07/17 07:40 [place] # 0.6 K/uL (0.0-0.8) 01/07/17 07:40 Eos # 0.0 K/uL (0.0-0.7) 01/07/17 07:40 Baso # 0.0 K/uL (0.0-0.2) 01/07/17 07:40 PT 11.4 SECONDS (9.7-12.2) 01/05/17 06:30 INR 1.0 01/05/17 06:30 APTT 28 SECONDS (21-34) 01/05/17 06:30 Sodium 143 mmol/L (132-148) 01/07/17 07:40 Potassium 4.3 mmol/L (3.6-5.2) 01/07/17 07:40 Chloride 106 mmol/L (98-107) 01/07/17 07:40 Carbon Dioxide 29 mmol/L (22-30) 01/07/17 07:40 Anion Gap 12 (10-20) 01/07/17 07:40 BUN 20 mg/dL (7-17) H 01/07/17 07:40 Creatinine 0.8 MG/DL (0.7-1.2) 01/07/17 07:40 Est GFR ( Amer) > 60 01/07/17 07:40 Est GFR (Non-Af Amer) > 60 01/07/17 07:40 Random Glucose 90 mg/dL (65-105) 01/07/17 07:40 Calcium 8.7 mg/dl (8.6-10.4) 01/07/17 07:40 Phosphorus 3.7 mg/dL (2.5-4.5) 01/07/17 07:40 Magnesium 2.1 mg/dL (1.6-2.3) 01/07/17 07:40 Total Bilirubin 0.6 mg/dL (0.2-1.3) 01/07/17 07:40 AST 17 U/L (14-36) 01/07/17 07:40 ALT 21 U/L (9-52) 01/07/17 07:40 Alkaline Phosphatase 35 U/L (38-126) L 01/07/17 07:40 Total Protein 6.8 g/dL (6.3-8.3) 01/07/17 07:40 Albumin 3.8 g/dL (3.5-5.0) 01/07/17 07:40 Globulin 3.1 gm/dL (2.2-3.9) 01/07/17 07:40 Albumin/Globulin Ratio 1.2 (1.0-2.1) 01/07/17 07:40 Urine HCG, Qual Negative (NEGATIVE) 01/05/17 07:09 Attending/Attestation - Attestation I have personally seen and examined this patient.: Yes I have fully participated in the care of the patient.: Yes I have reviewed all pertinent clinical information, including history, physical exam and plan: Yes Notes (Text): 01/08/17 15:59 Patient was seen and examined at bedside with the resident Patient appears comfortable and states she is able to move it without any difficulty She is clear for discharge by neurosurgery She will be discharged to home and she will follow-up with neurosurgery as outpatient I agree with the discharge note by the resident.
[2017-01-07 16:07] VITALS: BP 108/60; PULSE 101; TEMP 98.4; O2SAT 99
--- NOTE | 2017-01-14 19:10 | CARD ---
APPROVED REPORT EKG Measurement Heart [id number] [place] [id number] <Conclusion> Normal sinus rhythm Normal ECG
--- NOTE | 2017-01-14 19:10 | CARD ---
APPROVED REPORT EKG Measurement Heart [id number] <Conclusion> Normal sinus rhythm Normal ECG
--- NOTE | 2017-01-14 19:10 | CARD ---
APPROVED REPORT EKG Measurement Heart [id number] [place] [id number] <Conclusion> Normal sinus rhythm Normal ECG
== END 2017-01-07 16:45 | disposition home or self-care (01) | DRG 758 ==
LOC: C.ER 13:10 → C.9E 17:18 → C.3T 18:17 → OBSVTOIN 01-04 15:05
PROVIDERS: ADMIT Internal Medicine; ATTEND Internal Medicine
PROC: 0ST40ZZ Resection of Lumbosacral Disc, Open Approach (ICD-10-PCS; principal; 2017-01-05 11:00)
DX: M51.16 Intervertebral disc disorders with radiculopathy, lumbar region (principal)